=== PATIENT | female | born 1975 | race Caucasian/White ===

== ENCOUNTER 2017-04-11 15:42 | Emergency (ER) | payer MEDICAID ==
[~2017-04-11] VITALS: Ht 152.4 cm; Wt 78.0 kg
[~2017-04-11 15:42] MED LIST: BEN25 PO; KENC1 TOP; PRED20TA PO
[2017-04-11 15:43] VITALS: Ht 152.4 cm; Wt 78.0 kg
[2017-04-11] MEDS ORDERED: PERM1LIQ MC (15:57)
[2017-04-11] MEDS ORDERED: DIPH25CA6 PO (15:57)
--- NOTE | 2017-04-11 16:14 | ERA ---
ER Documentation Chief Complaint Date/Time DATE: 04/11/17 TIME: 16:13 Chief Complaint rash,icthing HPI This is a 42-year-old female who is presenting with a chief complaint of itching and rash. Patient denies any known triggering environmental factors. Patient has had similar symptoms 1 year ago that was relieved with a cream. Pruritus is worse at night. Patient denies fever, difficulty breathing or sick contacts. Patient has no other complaints at this time. ROS All systems reviewed and are negative except as per history of present illness. Medications Home Meds Active Scripts Diphenhydramine Hcl* (Diphenhydramine Hcl*) 25 Mg Capsule, 25 MG PO Q6 Y for ITCHING for 14 Days, CAP Prov:GEOFF AMES PA-C 04/11/17 Permethrin (Permethrin) 1 Gm Liquid, 1 GM MC QHS for 2 Days Prov:GEOFF AMES PA-C 04/11/17 Diphenhydramine Hcl* (Benadryl*) 25 Mg Cap, 25 MG PO Q6, #15 CAP Prov:NASEEM MAY NP 09/18/16 Prednisone* (Prednisone*) 20 Mg Tab, 40 MG PO DAILY for 4 Days, TAB Prov:NASEEM MAY NP 09/18/16 Triamcinolone Acetonide (Triamcinolone Acetonide) 0.1% - 15 Gm Cream.gm., 1 APPLIC TOP BID, #1 TUB Prov:NASEEM MAY NP 09/18/16 Allergies Allergies: Coded Allergies: No Known Allergy (Verified Allergy, Unknown, 12/02/06) PMhx/Soc Hx Alcohol Use: No Hx Substance Use: No Hx Tobacco Use: No Physical Exam Vitals Vital Signs Date Time Temp Pulse Resp B/P Pulse Ox O2 Delivery O2 Flow Rate FiO2 04/11/17 15:43 99.5 106 20 111/62 99 Physical Exam Const: Well-appearing overweight 42-year-old female Head: Atraumatic Eyes: Normal Conjunctiva ENT: Normal External Ears, Nose and Mouth. Neck: Full range of motion..~ No meningismus. Resp: Clear to auscultation bilaterally Cardio: Regular rate and rhythm, no murmurs Abd: Soft, non tender, non distended. Normal bowel sounds Skin: 1 mm round papules on the extremities that are described as pruritic. Papules are clear. No induration or lichenification noted. No burrows noted. Back: No midline or flank tenderness Ext: No cyanosis, or edema Neur: Awake and alert Psych: Normal Mood and Affect Procedures/MDM 22-year-old female is presenting with symptoms and signs most consistent with pediculosis. We will go ahead and prescribe patient diphenhydramine for symptomatic relief as well as permethrin. Patient has been instructed to use permethrin once leave on without taking a shower 12 hours and then reapplying in 2 weeks. Patient has verbally acknowledged that she understands the treatment plan and her current condition. At this time a very little suspicion for endangerment of the airway, or viral/bacterial/fungal etiologies. Patient' s vitals are stable and her current condition is appropriate for discharge. Patient will be discharged at this time with discharge instructions and return precautions. Departure Diagnosis: Primary Impression: Pediculosis Condition: Stable Patient Instructions: Permethrin Topical lotion, Permethrin Topical cream Additional Instructions: Dany un seguimiento con menezes PCP dentro de los prximos 1-3 denise para pat evaluaci n ms completa y pat posible derivacin a un especialista. Devuelva el departamento de emergencia inmediatamente si los sntomas empeoran o cambian. Si tiene alguna pregunta con respecto a los medicamentos, consulte con menezes farmac utico o con nosotros antes de salir. Si se producen reacciones adversas mientras maliha geena medicamentos, suspenda el tratamiento y regrese inmediatamente al servicio de urgencias. [place] geena medicamentos segn las indicaciones y complete el curso completo del tratamiento. GEOFF AMES PA-C Apr 11, 2017 16:14
== END 2017-04-11 16:13 | disposition home or self-care (01) ==
LOC: E/R 15:42
DX: B85.2 Pediculosis, unspecified (principal)
CPT/HCPCS: 99283

== ENCOUNTER 2017-08-08 19:49 | Emergency (ER) | END 2017-08-09 01:29 | disposition home or self-care (01) | DX: R10.33 Periumbilical pain (principal); R51 Headache; R05 Cough; R11.10 Vomiting, unspecified; R21 Rash and other nonspecific skin eruption | CPT/HCPCS: 36415; 71010; 80053; 81001; 83690; 85025; 96374; J1885; J7030; Z7502 ==